=== PATIENT | male | born 1970 | race Caucasian/White ===

== ENCOUNTER 2023-05-04 23:18 | Emergency (ER) | payer SELFPAY ==
[2023-05-05 00:06] LABS: APPEARANCE,URINE CLOUDY (Clear); BILIRUBIN,URINE 1+ (Negative); COLOR,URINE RED (Yellow); GLUCOSE,URINE NEGATIVE (Negative); KETONES,URINE TRACE (Negative); LEUKOCYTE ESTERASE,URINE TRACE (Negative); NITRITE,URINE POSITIVE (Negative); OCCULT BLOOD,URINE 3+ (Negative); PROTEIN,URINE 3+ (Negative)
[2023-05-05] MEDS ORDERED: Sulfamethoxazole/Trimethoprim 800-160 MG Tab PO ONE (00:17)
[2023-05-05 00:20] LABS: BACTERIA,URINE MODERATE /hpf (FEW); EPITHELIAL CELLS,URINE NOT SEEN /hpf (0-5); MUCUS,URINE NOT SEEN /hpf (FEW); RBC,URINE 75-100 /hpf (0-5); WBC,URINE 0-5 /hpf (0-5)
== END 2023-05-05 00:33 | disposition home or self-care (01) ==
LOC: JD.ED 23:18
DX: N39.0 Urinary tract infection, site not specified (principal)
CPT/HCPCS: 81001; 99283; A9270